=== PATIENT | male | born 2000 | race Caucasian/White ===

== ENCOUNTER 2019-02-20 19:42 | Emergency (ER) | payer OTHER ==
[2019-02-20 20:16] VITALS: BP 161/76
--- NOTE | 2019-02-20 21:03 | UC ---
Skin Complaint HPI - HPI Summary HPI Summary: Pt presents with c/o sudden onset of rash to right lower lateral shafer. Pt noticed erythematous rash, mild swelling to right lateral lower leg. Pt denies pruritus, or drainage. Pt states that [place] week [place] and was wearing long pants. - History of Current Complaint Chief Complaint: UCSkin Time Seen by Provider: 02/20/19 20:16 Stated Complaint: RASH ON RIGHT LEG Hx Obtained From: Patient Onset/Duration: Sudden Onset, Lasting Days, Still Present Skin Exposure Onset/Duration: Days Ago Timing: Constant Onset Severity: Mild Current Severity: Mild Pain Intensity: 0 Pain Scale Used: 0-10 Numeric Location: Discrete - right lower lateral leg Character: Swelling, Redness, Painful Aggravating Factor(s): Touch Alleviating Factor(s): Unknown Associated Signs & Symptoms: Positive: Rash, Tenderness Related History: Possible Reaction to: Environmental Exposure - Allergy/Home Medications Allergies/Adverse Reactions: Allergies Allergy/AdvReac Type Severity Reaction Status Date / Time Penicillins Allergy Hallucinati Verified 02/20/19 20:08 ons Home Medications: Home Medications Hydrochlorothiazide TAB* [Hydrodiuril TAB*] 1 tab PO DAILY 02/20/19 [History Confirmed 02/20/19] Losartan TAB* [Cozaar TAB*] 1 tab PO DAILY 02/20/19 [History Confirmed 02/20/19] amLODIPine TAB* [Norvasc 5 mg TAB*] 10 mg PO DAILY 02/20/19 [History Confirmed 02/20/19] PMH/Surg Hx/FS Hx/Imm Hx Previously Healthy: Yes - Surgical History Surgical History: None - Family History Known Family History: Positive: Cardiac Disease - Social History Occupation: Student Lives: Dormitory/Roommates Alcohol Use: Occasionally Substance Use Type: None Smoking Status (MU): Never Smoked Tobacco Have You Smoked in the Last Year: No - Immunization History Vaccination Up to Date: Yes Review of Systems All Other Systems Reviewed And Are Negative: Yes Constitutional: Positive: Negative Skin: Positive: Rash - righ tlower lateral leg Eyes: Positive: Negative ENT: Positive: Negative Respiratory: Positive: Negative Cardiovascular: Positive: Negative Gastrointestinal: Positive: Negative Genitourinary: Positive: Negative Motor: Positive: Negative Neurovascular: Positive: Negative Musculoskeletal: Positive: Edema, Myalgia Neurological: Positive: Negative Psychological: Positive: Negative Is Patient Immunocompromised?: No Physical Exam Triage Information Reviewed: Yes Appearance: Well-Appearing Vital Signs: Initial Vital Signs Temp 100.2 F 02/20/19 20:10 Pulse 120 02/20/19 20:10 Resp 18 02/20/19 20:10 BP 161/76 02/20/19 20:10 Pulse Ox 100 02/20/19 20:10 Vital Signs Reviewed: Yes Eye Exam: Normal ENT Exam: Normal ENT: Positive: Hearing grossly normal Dental Exam: Normal Neck exam: Normal Respiratory: Positive: No respiratory distress Musculoskeletal: Positive: Edema @ - >1+ pitting edema, right lateral lower leg. Neurological Exam: Normal Psychological Exam: Normal Skin: Positive: Rashes - flat, erytheamtous, blanchabel rash to right lower leg Course/Dx - Course Course Of Treatment: I disucssed with the pt that I was unsure what was the cause of the rash and to f/u up with PCP and dermatology as soon as possible. I discussed the dx of cellulitis and the need to monitor for worsening symptoms. - Differential Diagnoses - Skin Complaint Differential Diagnoses: Cellulitis, Poison Denisse, Poison Marshall - Diagnoses Provider Diagnosis: Rash Discharge ED - Sign-Out/Discharge Documenting (check all that apply): Patient Departure All imaging exams completed and their final reports reviewed: No Studies - Discharge Plan Condition: Stable Disposition: HOME Prescriptions: DOXYcycline CAP(*) [DOXYcycline 100MG CAP(*)] 100 mg PO Q12H #20 cap Patient Education Materials: Cellulitis (ED) Referrals: [facility] [Outside] - If Needed Gordon Roman MD [Medical Doctor] - Altagracia Clark MD [Medical Doctor] - Shasta Smith [Medical Doctor] - No Primary Care Phys,NOPCP [Primary Care Provider] - Additional Instructions: Please follow up with your PCP as soon as possible. - Billing Disposition and Condition Condition: STABLE Disposition: Home
[2019-02-21 11:45] LABS: ABS Basophils 0.1 10^3/ul (0-0.2); ABS Eosinophils 0.3 10^3/ul (0-0.6); ABS Monocytes 0.6 10^3/ul (0-0.8); ABS Neutrophils 4.1 10^3/ul (1.5-7.7); Eosinophil % 4.5 %; Hematocrit 43 % (42-52); Hemoglobin 14.8 g/dL (14.0-18.0); Lymphocyte % 28.3 %; Mean Corpuscular HGB Conc 35 g/dL (31-36); Mean Corpuscular Hemoglobin 29 pg (27-31); Mean Corpuscular Volume 85 fL (80-94); Mean Platelet Volume 7.5 fL (7.4-10.4); Platelet Count 295 10^3/uL (150-450); Red Blood Count 5.05 10^6 /uL (4.18-5.48); Red Cell Distribution Width 13 % (10-15); White Blood Count 7.2 10^3/uL (3.5-10.8)
== END 2019-02-20 20:44 | disposition home or self-care (01) ==
LOC: UCCORT 19:42
DX: R21 Rash and other nonspecific skin eruption (principal); R60.0 Localized edema; M79.10 Myalgia, unspecified site; Z88.0 Allergy status to penicillin
CPT/HCPCS: 36415; 85025; 99202; G0463